=== PATIENT | female | born 2000 | race Caucasian/White ===

== ENCOUNTER 2023-12-30 00:11 | Emergency (ER) | payer OTHER, MEDICAID ==
[~2023-12-30] VITALS: Ht 172.7 cm; Wt 95.0 kg
[2023-12-30 00:14] VITALS: O2SAT 98
[2023-12-30] MEDS: IBUPROFEN 600MG TABLET PO STA (01:55)
[2023-12-30] MEDS ORDERED: CETI10CA2 MT (05:30)
[2023-12-30] MEDS ORDERED: HYDR-4001 MT (05:30)
[2023-12-30] MEDS ORDERED: IBUP-2029 MT (05:30)
[2023-12-30 05:45] VITALS: BP 121/68; PULSE 68; RESP 16; TEMP 98
== END 2023-12-30 05:50 | disposition home or self-care (01) ==
LOC: ER 00:11
DX: S02.85XA Fracture of orbit, unspecified, initial encounter for closed fracture (principal); W18.39XA Other fall on same level, initial encounter; Y93.89 Activity, other specified; Y92.89 Other specified places as the place of occurrence of the external cause; Y99.8 Other external cause status
CPT/HCPCS: 70486; 81025; 99284

== ENCOUNTER 2024-03-12 08:22 | Emergency (ER) | payer OTHER ==
[~2024-03-12] VITALS: Ht 175.3 cm; Wt 104.0 kg
[~2024-03-12 08:22] MED LIST: CETI10CA2 MT; HYDR-4001 MT; IBUP-2029 MT
[2024-03-12 08:27] VITALS: O2SAT 98
[2024-03-12 09:30] VITALS: BP 128/63; PULSE 100; RESP 18; TEMP 98.9
== END 2024-03-12 09:33 | disposition home or self-care (01) ==
LOC: ER 08:22
DX: J06.9 Acute upper respiratory infection, unspecified (principal); Z90.49 Acquired absence of other specified parts of digestive tract; Z98.890 Other specified postprocedural states
CPT/HCPCS: 99281